=== PATIENT | male | born 1980 | race Caucasian/White ===

== ENCOUNTER → 2020-04-06 09:15 | Outpatient (BNVA) | payer SELFPAY | PROVIDERS: Visit Provider Nurse Practitioner Family | DX: L02.519 Cutaneous abscess of unspecified hand (principal); L03.113 Cellulitis of right upper limb | CPT/HCPCS: 84450; 87070 ==

== ENCOUNTER 2020-04-07 07:50 | Emergency (ER) | payer SELFPAY ==
[2020-04-07] VITALS (11 sets, daily range): BP systolic 140–168; BP diastolic 84–109; PULSE 84–99; RESP 16–95; TEMP 36.8–36.9; O2SAT 92–98; BMI 39.0
--- NOTE | 2020-04-07 08:12 | CT_ITS ---
WS: [id number] CONTRAST ENHANCED CT RIGHT HAND TECHNIQUE: Contrast-enhanced CT right hand with coronal and sagittal reformatted images. CLINICAL INFORMATION: abscess COMPARISON: None. DLP: 454.[address] scans at [facility] use at least one of these dose optimization techniques: automat ed exposure control; mA and/or kV adjustment per patient size (includes targeted exams where dose is matched to clinical indication); or iterative reconstruction. FINDINGS: Peripherally enhancing abscess dorsal aspect of the hand along the dorsal radial thumb at the level o f the first and second metacarpal. No evidence of underlying osteomyelitis. Peripheral enhancing absc ess measures approximately 1.4 x 1.9 x 2.2 CM. This extends the dorsal skin surface. Diffuse surround ing inflammatory stranding and edema in the dorsal subcutaneous soft tissues. Thickening of the retin aculum is reactive. Additional adjacent layering fluid and edema extending along the dorsal subcutaneous soft tissues. CT/CT hand [place] con [id number] IMPRESSION: 1. Cellulitis with abscess involving the dorsal soft tissues along the radial side. Focal peripheral enhancing abscess measures 1.4 x 1.9 x 2.2 cm extending to the dorsal skin surface. 2. Additional layering fluid and edema along the adjacent dorsal subcutaneous soft tissues. 3. No evidence of osteomyelitis. Attempted Jameel Cheng DO at 04/07/2020 9:15 AM.
--- NOTE | 2020-04-07 08:17 | W.ED.EXTPRO ---
HPI - Extremity Problem General: Chief complaint: Extremity Injury, Upper Stated complaint: R HAND WOUND Time Seen by Provider: 04/07/20 07:51 History of Present Illness: HPI Narrative: 40-year-old male presents emergency room with swelling of his right hand. This began about 2 to 3 days ago he was seen yesterday in a walk-in clinic and they did an incision and drainage and cultured it according to his report started him on Bactrim. Overnight his got markedly worse his entire hand is now swollen whereas prior to that it was just localized. Is also extending up the forearm. He has generalized myalgias and not feeling well he has not really noticed any fevers not had any vomiting or diarrhea denies any respiratory symptoms recently. He has not been exposed anyone known to have COVID. 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) and other (Use of hand) Associated symptoms: Reports arthralgias and myalgias; Deny chest pain, fever(s), rash, short of breath or other Review of Systems Const: Denies: fever(s) ENMT: Denies: throat pain, ear or mastoid pain, nasal discharge or nasal congestion Card: Denies: chest pain Resp: Denies: dyspnea, productive cough or non-productive cough GI: Denies: abdominal pain, nausea, vomiting, hematemesis, coffee ground emesis, diarrhea, constipation, bloating, hematochezia or melena : Denies: flank pain, dysuria, urinary frequency or urinary urgency Skin/Breast: Denies: rash PFSH ED PFSH: Social History Smoking and tobacco status: current every day smoker cigarettes Packs smoked per day: 1 Second hand smoke exposure: Yes Smoking risk assessment/counseling performed?: No Alcohol intake: never Desire information about alcohol rehabilitation?: No Counseling given: No Desire information about substance/drug rehabilitation?: No Adopted: No Caregiver/support person: No Lives independently: Yes Household members: none Housing: House Marital status: Single Number of children: 1 Highest education level completed: High School Graduate service: No Current occupational status: unemployed History of recent travel: No Physical Exam Const: COMMON NORMALS: no acute distress GENERAL APPEARANCE: cooperative and comfortable ORIENTATION/CONSCIOUSNESS: Yes awake, Yes oriented to person, Yes oriented to place and Yes oriented to time HENMT: COMMON NORMALS: normocephalic, atraumatic and hearing grossly normal bilaterally HEAD & SCALP: normocephalic and atraumatic Neck/C-Spine: COMMON NORMALS: no JVD Lymph: LYMPHATIC: no lymphadenopathy noted and no lymphedema noted Resp: COMMON NORMALS: normal respiratory effort, No retractions, No use of accessory muscles and clear to auscultation bilaterally AUSCULTATION: clear to auscultation bilaterally Cardio: COMMON NORMALS: no JVD, regular rate, regular rhythm and No murmurs present (Cardio) RATE: regular rate RHYTHM: regular rhythm GI: COMMON NORMALS: Soft to palpation and No hepatosplenomegaly present AUSCULTATION: Yes normoactive bowel sounds PALPATION: Yes Soft to palpation, No Tenderness to palpation present (GI), No Guarding due to palpation present (GI) and Yes No hepatosplenomegaly present Extremity: NARRATIVE EXTREMITY EXAM: Market edema of the right hand including the fingers and distal forearm. There is a open ulcerated area in the first and second digit interspace. He has partial range of motion of the thumb is limited due to swelling and pain. There is erythema and a serous drainage no purulent drainage at this time. Ultrasound at the bedside shows a septated subcutaneous abscesses. Neuro: SENSORIUM/ORIENTATION: Yes oriented to person, Yes oriented to place and Yes oriented to time Skin: COMMON NORMALS: no rashes or lesions noted GENERAL SKIN EXAM: no rashes or lesions noted Course Vital Signs: Vital signs: Vital Signs Temperature 98.3 F 04/07/20 09:53 Pulse Rate 90 04/07/20 11:49 Respiratory Rate 95 H 04/07/20 11:49 Blood Pressure 144/95 04/07/20 11:49 Pulse Oximetry 95 04/07/20 11:49 MDM - Extremity (Nontraumatic) MDM Narrative: Medical decision making narrative: Discussed with Dr. Robbins. She defers to hand surgeon discussed with the patient will make attempt to transfer to [facility] he is already received vancomycin given more medicine for pain control. White count at 27 6 cultures done initial culture from wound has a preliminary of some gram-negative rods and gram-positive cocci in pairs final is pending. Discussed with a hand surgeon. They would like him to be discharged to the emergency room and be seen at the clinic and they will schedule a surgical incision and drainage in the operating room at [facility] tomorrow morning. Discussed options of the patient the other option would be to transfer to the ER to ER however if we do that he may have to wait in the emergency room till sometime late this evening to get to the operating room he prefer to drive himself to [place] discussed the risks and benefits he still prefer to go and do that we will go and discharge him home. Patient was held for a time before discharge to make sure he recovered from the sedative effects of the pain medications he been given. Lab Data: Labs: Lab Results 04/07/20 04/07/20 Range/Units 08:30 08:30 WBC 27.6 H (4.0-10.0) 10^3/ uL RBC 5.91 H (4.1-5.3) 10^6/u L Hgb 17.5 H (11.7-16.6) g/dL Hct 51.1 (42.0-52.0) % MCV 86.5 (80-94) fL MCH 29.6 (28.0-34.0) pg MCHC 34.2 (30.0-36.0) g/dL RDW 11.8 L (12.1-15.1) % Plt Count 257 (130-400) 10^3/c mm MPV 11.0 H (7.4-10.4) fL Neut % (Auto) 77.1 % Lymph % (Auto) 9.6 % [place] % (Auto) 10.8 % Eos % (Auto) 0.3 % Baso % (Auto) 0.8 % Neut # (Auto) 21.28 H (1.8-7.7) 10^3/u L Lymph # (Auto) 2.7 (0.8-4.8) 10^3/u L [place] # (Auto) 3.0 H (0.2-0.9) 10^3/u L Eos # (Auto) 0.1 (0.0-0.8) 10^3/u L Baso # (Auto) 0.2 H (0.0-0.1) 10^3/u L Nucleated RBC % (a uto) 0 % Nucleated RBCs # 0.0 /100WBC Sodium 127 L (136-145) mmol/L Potassium 3.7 (3.5-5.1) mmol/L Chloride 92 L (98-107) mmol/L Carbon Dioxide 18 L (22-29) mmol/L Anion Gap 20.7 H (5-19) BUN 7 (6-20) mg/dL Creatinine 0.5 L (0.7-1.2) mg/dL GFR Calculation 184.2 H (90-130) mL/min Glucose 418 H (65-115) mg/dL Calculated Osmolal ity 280 L (285-295) mOsm/k g Calcium 9.2 (8.5-10.5) mg/dL Discharge Plan Discharge Patient Disposition: Home Clinical Impression: Abscess of hand, right Condition: Stable Prescriptions: New hydrocodone-acetaminophen 5-325 mg tablet 1 tab PO Q6H PRN (Reason: pain) Qty: 20 RF: 0 No Action sulfamethoxazole-trimethoprim [Bactrim DS] 800-160 mg tablet 1 tab PO BID 10 Days Qty: 20 RF: 0 Pain Reliever 500 mg Tablet 1,000 mg PO PRN RF: 0 Emergen-C 1,000 mg Powder Effervescent In Packet 1,000 mg PO QAM RF: 0 Discharge Orders: Discharge Order (Routine); Ordered 04/07/20 Ordered By: Jameel Cheng Discharge Diet: Clear Liquid Discharge Activity: Limit activity as instructed Activity Restrictions/Additional Instructions: No use of the right hand until cleared by orthopedics. Clear liquid diet until you see orthopedics later today. I have talked to the hand surgeon she requested that we discharge you and refer you to her clinic she will make arrangements for surgical incision and drainage of the abscess at that time. Discharge Date/Time: 04/07/20 11:50 Coding Level of Care Code ED Iron Bender for Dede Abernathy Exam Comprehensive
[2020-04-07] MEDS: vancomycin 1,000 MG in sodium chloride 0.9% 250 ML 250 MG IV (08:21)
[2020-04-07] MEDS: tetanus-dipt-pertussis 0.5 mL SDV IM (08:22)
[2020-04-07 08:47] LABS: Basophils # 0.2 10^3/uL (0.0-0.1); Basophils % 0.8 %; Eosinophils # 0.1 10^3/uL (0.0-0.8); Eosinophils % 0.3 %; Hematocrit 51.1 % (42.0-52.0); Hemoglobin 17.5 g/dL (11.7-16.6); Lymphocytes # 2.7 10^3/uL (0.8-4.8); Lymphocytes % 9.6 %; Mean Corpuscular HGB Conc 34.2 g/dL (30.0-36.0); Mean Corpuscular Hemoglobin 29.6 pg (28.0-34.0); Mean Corpuscular Volume 86.5 fL (80-94); Monocytes % 10.8 %; Neutrophils # 21.28 10^3/uL (1.8-7.7); Neutrophils % 77.1 %; Nucleated Red Blood Cells % 0 %; Platelet Count 257 10^3/cmm (130-400); Red Blood Count 5.91 10^6/uL (4.1-5.3); Red Cell Distribution Width 11.8 % (12.1-15.1); White Blood Count 27.6 10^3/uL (4.0-10.0)
[2020-04-07] MEDS: iohexol 300 mg/mL 100 mL Btl IV (08:51)
[2020-04-07] MEDS: morphine 4 mg/mL SDV 1 mL IVP ×2 (08:56→09:48)
[2020-04-07] MEDS: ondansetron 2 mg/ML SDV 2 mL 4 MG IVP (08:56)
[2020-04-07 09:29] LABS: Anion Gap 20.7 (5-19); Blood Urea Nitrogen 7 mg/dL (6-20); Calcium 9.2 mg/dL (8.5-10.5); Carbon Dioxide 18 mmol/L (22-29); Chloride 92 mmol/L (98-107); Glomerular Filtration Rate 184.2 mL/min (90-130); Glucose 418 mg/dL (65-115); Osmolality Calculated 280 mOsm/kg (285-295); Potassium 3.7 mmol/L (3.5-5.1); Sodium 127 mmol/L (136-145)
--- NOTE | 2020-04-07 10:15 | PC.NURSE ---
marked redness Nurse marked patients right arm to track redness coming up the arm. slight drainage coming from wound. wound left open to air. patient rating pain 5/10 after pain medication. informed patient of no drinks of water or food at this time. will continue to monitor.
== END 2020-04-07 11:50 | disposition home or self-care (01) ==
PROVIDERS: Emergency Provider Family Medicine
DX: L02.511 Cutaneous abscess of right hand (principal); F17.210 Nicotine dependence, cigarettes, uncomplicated; Z23 Encounter for immunization
CPT/HCPCS: 12345; 73201; 80048; 85025; 87040; 90471; 90715; 96365; 96375; 96376; 99283; 99284; J2270; J2405; J3370; J7050; Q9967

== ENCOUNTER → 2022-09-13 14:37 | Outpatient (BNVA) | payer BC, SELFPAY | PROVIDERS: Visit Provider Podiatrist Foot & Ankle Surgery | DX: E11.621 Type 2 diabetes mellitus with foot ulcer (principal); L97.512 Non-pressure chronic ulcer of other part of right foot with fat layer exposed; L02.611 Cutaneous abscess of right foot; S91.301A Unspecified open wound, right foot, initial encounter; X58.XXXA Exposure to other specified factors, initial encounter | CPT/HCPCS: 36415; 73630; 80053; 83036; 85025; 87070; 87075; 87205 ==